=== PATIENT | male | born 1980 | race Hispanic/Latino ===

== ENCOUNTER 2018-01-20 21:37 | Emergency (ER) | payer SELFPAY ==
[2018-01-20 22:27] LABS: BASOPHILS % (AUTO) 0.6 % (0.0-5.0); EOSINOPHILS % (AUTO) 1.1 % (0.0-8.0); LYMPHOCYTES % (AUTO) 15.6 % (21.0-51.0); MEAN CORPUSCULAR HEMOGLOBIN 29.8 pg (27.0-33.0); MEAN CORPUSCULAR HGB CONC 35.4 g/dL (32.0-36.0); MEAN CORPUSCULAR VOLUME 84.2 fL (79-99); MONOCYTES % (AUTO) 7.9 % (3.0-13.0); NEUTROPHILS % (AUTO) 74.8 % (40.0-77.0); NUCLEATED RED BLOOD CELLS 0.1 % (0.0-0.19); PLATELET COUNT (AUTO) 202 K/uL (130-400); RED BLOOD CELL COUNT(AUTO) 4.64 MIL/uL (4.50-6.20); RED CELL DISTRIBUTION WIDTH 13.9 % (11.0-15.5); WHITE BLOOD COUNT (AUTO) 9.9 K/uL (4.8-10.8)
[2018-01-20 22:41] LABS: POTASSIUM 3.2 mmol/L (3.5-5.1)
[2018-01-20 22:44] LABS: INR 0.95 (0.85-1.15); PARTIAL THROMBOPLASTIN TIME 26.6 SEC (26.3-35.5)
[2018-01-20 22:46] LABS: ALBUMIN 3.7 g/dL (3.5-5.0); BILIRUBIN,TOTAL 0.3 mg/dL (0.2-1.0); TOTAL PROTEIN, SERUM 7.2 g/dL (6.0-8.3)
[2018-01-20] MEDS ORDERED: POTASSIUM BICARB/CIT AC 25 MEQ TABLET.EFF ONE (23:37)
[2018-01-20] MEDS ORDERED: CLINDAMYCIN 600 MG/D5% WATER 50 ML IV ONE (23:38)
== END 2018-01-21 00:12 | disposition home or self-care (01) ==
LOC: EDH 21:37
DX: L03.115 Cellulitis of right lower limb (principal)
CPT/HCPCS: 36415; 80053; 85025; 85610; 85730; 93971; 96365; 99285; J3490

== ENCOUNTER 2019-04-22 16:56 | Emergency (ER) | payer SELFPAY ==
[2019-04-22] MEDS ORDERED: LIDOCAINE HCL 1% 20 ML VIAL ONE (17:17)
[2019-04-22] MEDS ORDERED: LIDOCAINE/PRILOCAINE CREAM 5GM TUBE TP ONE (17:17)
[2019-04-22] MEDS ORDERED: TETANUS/DIPHTHERIA TOXOID [ADULT] 0.5 ML VIAL IM ONE (17:18)
== END 2019-04-22 19:43 | disposition home or self-care (01) ==
LOC: EDH 16:56
DX: S01.511A Laceration without foreign body of lip, initial encounter (principal); W11.XXXA Fall on and from ladder, initial encounter; Y93.89 Activity, other specified; Y92.098 Other place in other non-institutional residence as the place of occurrence of the external cause; Y99.8 Other external cause status; Z90.49 Acquired absence of other specified parts of digestive tract
CPT/HCPCS: 40650; 70450; 90471; 90714; 99284; J3490

== ENCOUNTER 2021-04-06 09:43 | Emergency (ER) | payer SELFPAY ==
[~2021-04-06] VITALS: Ht 170.2 cm; Wt 68.0 kg
[2021-04-06 09:45] VITALS: BP 132/83
[2021-04-06 10:21] VITALS: BP 126/81
[2021-04-06 10:27] LABS: BASOPHILS % (AUTO) 0.3 % (0.0-5.0); EOSINOPHILS % (AUTO) 0.1 % (0.0-8.0); HEMATOCRIT 43.9 % (42-54); MEAN CORPUSCULAR HEMOGLOBIN 27.5 pg (27.0-33.0); MEAN CORPUSCULAR VOLUME 83.1 fL (79-99); MONOCYTES % (AUTO) 7.7 % (3.0-13.0); NEUTROPHILS % (AUTO) 85.7 % (40.0-77.0); PLATELET COUNT (AUTO) 218 K/uL (130-400); RED BLOOD CELL COUNT(AUTO) 5.28 MIL/uL (4.50-6.20); RED CELL DISTRIBUTION WIDTH 13.6 % (11.0-15.5); WHITE BLOOD COUNT (AUTO) 11.2 K/uL (4.8-10.8)
[2021-04-06 10:28] LABS: APPEARANCE,URINE Clear (CLEAR); BILIRUBIN,URINE Negative (NEGATIVE); COLOR,URINE Yellow (YELLOW); GLUCOSE, URINE (UA) Negative (NEGATIVE); KETONES,URINE 15 mg/dL (NEGATIVE); LEUKOCYTE ESTERASE ,URINE Negative (NEGATIVE); NITRATE,URINE Negative (NEGATIVE); OCCULT BLOOD,URINE Negative (NEGATIVE); PH,URINE 5.5 (5.0-8.0); PROTEIN,URINE Trace mg/dL (NEGATIVE)
[2021-04-06 10:46] LABS: CREATININE 1.1 mg/dL (0.5-1.5); POTASSIUM 3.6 mmol/L (3.5-5.1)
[2021-04-06 10:50] LABS: ALBUMIN 3.8 g/dL (3.5-5.0); BILIRUBIN,TOTAL 0.7 mg/dL (0.2-1.0); TOTAL PROTEIN, SERUM 7.6 g/dL (6.0-8.3)
[2021-04-06 10:52] LABS: BACTERIA,URINE Moderate /HPF (None Seen); MUCUS,URINE Few LPF (None Seen); SQUAMOUS EPITHELIAL CELL,UR None Seen /HPF (0-2)
[2021-04-06] MEDS ORDERED: SODIUM CHLORIDE 0.9% 1000ML 1,000 ML IV SCH (11:30)
[2021-04-06] MEDS ORDERED: FAMOTIDINE/PF 20 MG/2 ML VIAL IV ONE (12:30)
[2021-04-06] MEDS ORDERED: PROCHLORPERAZINE EDISYLATE 10 MG/2 ML VIAL IV SCH (12:30)
[2021-04-06] MEDS ORDERED: DiphenhydrAMINE HCL 50 MG/ML VIAL IV ONE (12:30)
[2021-04-06] MEDS ORDERED: FAMO-136 PO (14:42)
[2021-04-06 15:11] VITALS: BP 116/78
== END 2021-04-06 15:13 | disposition home or self-care (01) ==
LOC: EDH 09:43
DX: K52.9 Noninfective gastroenteritis and colitis, unspecified (principal)
CPT/HCPCS: 36415; 80053; 81001; 85025; 87088; 96361; 96374; 96375; 99284; J0780; J1200; J3490

== ENCOUNTER 2021-04-15 22:52 | Emergency (ER) | payer SELFPAY ==
[~2021-04-15] VITALS: Ht 170.2 cm; Wt 68.0 kg
[~2021-04-15 22:52] MED LIST: FAMO-136 PO
[2021-04-15] MEDS ORDERED: NACL 0.9% 1000ML 1,000 ML IV ONE ×2 (22:53→23:45)
[2021-04-15 22:57] VITALS: BP 118/68
[2021-04-15] MEDS ORDERED: MORPHINE 2 MG SYG IVP ONE (23:45)
[2021-04-15] MEDS ORDERED: ONDANSETRON 4MG INJ IVP ONE (23:45)
[2021-04-15 23:59] LABS: BASOPHILS % (AUTO) 0.4 % (0.0-5.0); EOSINOPHILS % (AUTO) 0.9 % (0.0-8.0); HEMATOCRIT 44.7 % (42-54); LYMPHOCYTES % (AUTO) 9.8 % (21.0-51.0); MEAN CORPUSCULAR HEMOGLOBIN 28.3 pg (27.0-33.0); MEAN CORPUSCULAR HGB CONC 33.8 g/dL (32.0-36.0); MEAN CORPUSCULAR VOLUME 83.7 fL (79-99); MONOCYTES % (AUTO) 8.1 % (3.0-13.0); NEUTROPHILS % (AUTO) 80.4 % (40.0-77.0); PLATELET COUNT (AUTO) 299 K/uL (130-400); RED BLOOD CELL COUNT(AUTO) 5.34 MIL/uL (4.50-6.20); RED CELL DISTRIBUTION WIDTH 13.9 % (11.0-15.5); WHITE BLOOD COUNT (AUTO) 10.1 K/uL (4.8-10.8)
[2021-04-16 00:01] LABS: APPEARANCE,URINE Clear (CLEAR); BILIRUBIN,URINE Negative (NEGATIVE); COLOR,URINE Yellow (YELLOW); GLUCOSE, URINE (UA) Negative (NEGATIVE); KETONES,URINE Negative (NEGATIVE); LEUKOCYTE ESTERASE ,URINE Negative (NEGATIVE); NITRATE,URINE Negative (NEGATIVE); OCCULT BLOOD,URINE Large (NEGATIVE); PH,URINE 5.5 (5.0-8.0); PROTEIN,URINE Negative (NEGATIVE)
[2021-04-16 00:05] LABS: CARBON DIOXIDE 23 mmol/L (21-32); CHLORIDE 106 mmol/L (101-111); CREATININE 1.1 mg/dL (0.5-1.5); GLOMERULAR FILTR. RATE CALC 79 mL/min (>60); GLUCOSE,RANDOM 102 mg/dL (70-105); POTASSIUM 4.2 mmol/L (3.5-5.1); SODIUM SERUM 141 mmol/L (136-145); UREA NITROGEN, BLOOD 21 mg/dL (7-18)
[2021-04-16 00:09] LABS: RBC,URINE 26-50 /HPF (0-1); WBC,URINE 0-1 /HPF (0-1)
[2021-04-16 00:10] LABS: ALANINE AMINOTRANSFERASE 51 U/L (12-78); ALBUMIN 3.8 g/dL (3.5-5.0); ASPARTATE AMINOTRANSFERASE 32 U/L (10-37); BACTERIA,URINE Few /HPF (None Seen); BILIRUBIN,TOTAL 0.6 mg/dL (0.2-1.0); MUCUS,URINE Rare LPF (None Seen); TOTAL PROTEIN, SERUM 6.8 g/dL (6.0-8.3)
[2021-04-16 00:11] LABS: LIPASE < 50 U/L (114-286)
[2021-04-16] MEDS ORDERED: ONDANSETRON 4MG INJ ONE (00:14)
[2021-04-16] MEDS ORDERED: MORPHINE 2 MG SYG ONE (00:14)
[2021-04-16] MEDS ORDERED: IOHEXOL 350 MG/ML 100ML INFUS..BTL IV ONE (00:44)
[2021-04-16] MEDS ORDERED: LEVOFLOXACIN 500 MG/D5W 100 ML 100 ML IV ONE (00:45)
[2021-04-16 02:04] VITALS: BP 120/77
[2021-04-16] MEDS ORDERED: IBUP-2070 PO (02:59)
[2021-04-16] MEDS ORDERED: CIPR-278 PO (02:59)
[2021-04-16] MEDS ORDERED: PROM25TA7 PO (02:59)
== END 2021-04-16 03:38 | disposition home or self-care (01) ==
LOC: EDH 22:52
DX: A09 Infectious gastroenteritis and colitis, unspecified (principal); E86.0 Dehydration; Z79.899 Other long term (current) drug therapy
CPT/HCPCS: 36415; 74177; 80053; 81001; 82270; 83630; 83690; 85025; 87046; 87177; 87324; 96361; 96365; 96375; 99285; J1956; J2405; J7030; Q9967

== ENCOUNTER 2021-06-08 13:30 | Emergency (ER) | payer SELFPAY ==
[~2021-06-08] VITALS: Ht 172.7 cm; Wt 83.9 kg
[~2021-06-08 13:30] MED LIST changes: +CIPR-278 PO; +IBUP-2070 PO; +PROM25TA7 PO
[2021-06-08 13:31] VITALS: BP 128/83
== END 2021-06-08 15:28 | disposition left against medical advice (07) ==
LOC: EDH 13:30
DX: R50.9 Fever, unspecified (principal); Z53.21 Procedure and treatment not carried out due to patient leaving prior to being seen by health care provider

== ENCOUNTER 2025-02-17 18:37 | Emergency (ER) | payer SELFPAY ==
[~2025-02-17] VITALS: Ht 152.4 cm; Wt 68.0 kg
--- NOTE | 2025-02-17 18:46 | ERN ---
ED Note History of Present Illness Stated Complaint: COUGH, CONGESTION, SORE THROAT Chief Complaint: Cough Time Seen by MD: 18:39 Time Seen by Midlevel: 18:41 Dictation: 44-year-old male with no past medical history coming in with complaints of cough, congestion, sore throat and chest pain for the last three days. Patient states his spouse was diagnosed with influenza B on Saturday. Allergies: Coded Allergies: No Known Drug Allergies (Unverified Allergy, Unknown, 04/23/19) Home Meds Active Scripts Oseltamivir Phosphate (Tamiflu) 75 Mg Cap, 75 MG PO BID for 5 Days, #10 CAP Prov:XANDER STAPLES PLASTER LATHER 02/17/25 Ibuprofen (Ibuprofen) 600 Mg Tablet, 600 MG PO Q6H PRN for PAIN for 10 Days, #40 TAB Prov:LEANDRO BLAKE MD 04/16/21 Promethazine HCl (Promethazine HCl) 25 Mg Tablet, 25 MG PO QID PRN for nausea for 5 Days, #20 TAB Prov:LEANDRO BLAKE MD 04/16/21 Ciprofloxacin HCl (Cipro) 500 Mg Tablet, 500 MG PO BID for colitis for 10 Days, #20 TAB Prov:LEANDRO BLAKE MD 04/16/21 Famotidine (Pepcid) 20 Mg Tablet, 20 MG PO BID, #60 TAB Prov:PRAVIN RICHARDS MD 04/06/21 Past Medical History Past Medical History: No Pertinent History Surgical History: Appendectomy Social History: ETOH Review of System Dictation Constitutional: Negative for fever,chills, and weight loss Eyes: Negative for injury, pain,redness, and discharge ENT: Negative for injury,pain or swelling Cardiovascular: Positive for chest pain, no palpitations, and no edema Respiratory: Positive for cough, no shortness a breath or wheezing Abdomen/GI: Negative for abdominal pain, nausea, vomiting, diarrhea, and constipation Back: Negative for injury and pain : Negative for injury, bleeding and discharge MS/Extremity: Negative for injury and deformity Skin: Negative for rash, and discoloration Neuro: Negative for headache, weakness, numbness, tingling, and seizure Psych: Negative for suicide ideation, homicidal ideation, and hallucinations Initial Vital Sign VS Vital Signs Date Time Temp Pulse Resp B/P (MAP) Pulse Ox O2 Delivery O2 Flow Rate FiO2 02/17/25 18:38 99.7 84 16 121/87 98 Room Air 0 Physical Exam Dictation General: awake, alert, NAD Head/Face: Normocephalic, atraumatic Eyes: PERRL, EOMI, vision at baseline ENT: oral cavity clear, TMs clear, no signs of infection Neck: Trachea midline, supple, no nuchal rigidity Cardiovascular: RRR, normal S1/S2, No MRGs, no JVD Respiratory: CTAB, no respiratory distress, No rales or wheezes Abdomen: Soft, non-tender, non-distended, normal bowel sounds, no guarding or rebound. Skin: Warm, dry, normal turgor, no rash MS/Extremity: Pulses equal, no cyanosis, neurovascular intact, FROM Neuro: COAx4, GCS 15, strength 5/5, CN 2-12 intact, normal cerebellar exam, normal gait, Psych: Normal behavior, mood, and affect normal Results (Laboratory/Radiology) Laboratory/Radiology Laboratory Tests Test 02/17/25 18:43 02/17/25 19:36 Influenza Type A Antigen Negative For Type A Influenza Type B Antigen Positive For Type B SARS-CoV-2 Antigen (Rapid) PRESUMPTIVE NEGATIVE Group A Streptococcus Rapid negative (NEGATIVE) White Blood Count 4.6 K/uL (4.8-10.8) L Red Blood Count 5.31 MIL/uL (4.50-6.20) Hemoglobin 14.7 g/dL (14.0-18.0) Hematocrit 43.8 % (42-54) Mean Corpuscular Volume 82.5 fL (79-99) Mean Corpuscular Hemoglobin 27.7 pg (27.0-33.0) Mean Corpuscular Hemoglobin Concent 33.6 g/dL (32.0-36.0) Red Cell Distribution Width 13.8 % (11.0-15.5) Platelet Count 188 K/uL (130-400) Mean Platelet Volume 10.5 fL (7.5-10.5) Immature Granulocyte % (Auto) 0.0 % (0-1) Neutrophils (%) (Auto) 68.7 % (40.0-77.0) Lymphocytes (%) (Auto) 21.1 % (21.0-51.0) Monocytes (%) (Auto) 9.6 % (3.0-13.0) Eosinophils (%) (Auto) 0.2 % (0.0-8.0) Basophils (%) (Auto) 0.4 % (0.0-5.0) Neutrophils # (Auto) 3.2 K/uL (1.8-7.7) Lymphocytes # (Auto) 1.0 K/uL (1.0-4.8) Monocytes # (Auto) 0.4 K/uL (0.1-1.0) Eosinophils # (Auto) 0.01 K/uL (0.00-0.70) Basophils # (Auto) 0.02 K/uL (0.00-0.20) Absolute Immature Granulocyte (auto 0.00 K/uL (0-1) Nucleated Red Blood Cells 0.0 % (0.0-0.19) Sodium Level 135 mmol/L (136-145) L Potassium Level 3.9 mmol/L (3.5-5.1) Chloride Level 99 mmol/L (101-111) L Carbon Dioxide Level 29 mmol/L (21-32) Blood Urea Nitrogen 19 mg/dL (7-18) H Creatinine 1.0 mg/dL (0.5-1.3) Glomerular Filtration Rate Calc 96 mL/min (>90) Random Glucose 91 mg/dL (70-105) Total Calcium 9.1 mg/dL (8.5-10.1) Troponin I High Sensitivity 5 ng/L (4-75) Labs Reviewed?: Yes EKG Comment: EKGs done at 6:43 p.m.. Sinus rhythm at a rate of 87. No STEMI interpreted by ER MD ED Course ED Course Orders Procedure Category Date Status Time Cbc With Differential LAB 02/17/25 Complete 18:42 Basic Metabolic Panel LAB 02/17/25 Complete 18:42 Troponin I High LAB 02/17/25 Complete Sensitivity 18:42 12 Lead Ekg Tracing- EKG 02/17/25 Complete Technical 18:42 Covid19 (Sars Antigen LAB 02/17/25 Complete Rapid) 18:42 Influenza Type A & B, LAB 02/17/25 Complete Rapid 18:42 Rapid (Group A Strep) LAB 02/17/25 Complete 18:42 Chest 1vw RAD 02/17/25 Resulted 18:42 0.9%Nacl 1000ml (Ns PHA 02/17/25 Complete 1000ml) 19:05 Dexamethasone 4mg/Ml PHA 02/17/25 Complete 1ml Vial (Dexametha 19:30 Benzonatate 100 Mg PHA 02/17/25 Complete Capsule (Tessalon 100 19:30 Ketorolac PHA 02/17/25 Complete Tromethamine 15mg/Ml 19:30 Current Medications Medications (Trade) Dose Ordered Sig/[place] Route PRN Reason Start Time Stop Time Status Last Admin Dose Admin Benzonatate (Tessalon 100mg Caps) 200 mg ONCE ONCE PO 02/17/25 19:30 02/17/25 19:31 DC 02/17/25 20:08 Dexamethasone Sodium Phosphate (dexaMETHasone 4MG/ML 1ML VIAL) 6 mg ONCE ONCE IVP 02/17/25 19:30 02/17/25 19:31 DC 02/17/25 20:07 Ketorolac Tromethamine (toRADol) 15 mg ONCE ONCE IV 02/17/25 19:30 02/17/25 19:31 DC 02/17/25 20:08 Sodium Chloride 1,000 ml @ 1,000 mls/hr Q1H STAT IV 02/17/25 19:05 02/17/25 20:04 DC 02/17/25 20:08 Vital Signs Date Time Temp Pulse Resp B/P (MAP) Pulse Ox O2 Delivery O2 Flow Rate FiO2 02/17/25 18:38 99.7 84 16 121/87 98 Room Air 0 HEART Score Response (Comments) Value History: Low suspicion (0) 0 EKG: Normal 0 Age: < 45yrs (0) 0 Risk Factors: No known risk factors (0) 0 Initial Troponin: Normal limit (0) 0 Total 0 Medical Decision Making MDM MDM: 44-year-old male with no past medical history coming in with complaints of cough, congestion, sore throat and chest pain for the last three days. Patient states his spouse was diagnosed with influenza B on Saturday. Blood work unremarkable. Tested positive for influenza B. Chest x-ray within normal range. EKGs did not show any ST elevations. Heart score is 0. Patient will be discharged with Tamiflu. Educated to follow up with PCP in 1-2 days and return to the hospital symptoms worsen. Patient verbalized understanding, answered all questions. Differential diagnosis: Influenza, COVID, strep, viral syndrome, ACS Rationale: Tests considered and ordered secondary to shared decision making include: Previous outside records reviewed: Old ER visits. Risk of complication and/or morbidity or mortality of patient management: None Medications-Per medication reconciliation Need for hospitalization: Patient does not meet criteria for hospitalization. Need for emergency major/minor surgery: No There are no social concerns with this patient. Prescription drug management Prescriptions will include symptomatic care Patient's prior external medical records from other ER visits were reviewed by me as indicated. Prior testing and results from previous visits were reviewed. Prior tests were taken into account with medical decision making and resource utilization, independent historian/historians were used to obtain complete medical history. I independently interpreted the test that were performed, results were reviewed by me and considered findings on radiology if ordered. Medical management and examination interpretation discussions were had by me with other qualified healthcare professionals as indicated for the patient's care. DX & DISP Disposition: Discharge Departure Impression: Primary Impression: Influenza B Condition: Stable Scripts Oseltamivir Phosphate (Tamiflu) 75 Mg Cap 75 MG PO BID for 5 Days, #10 CAP Prov: XANDER STAPLES PLASTER LATHER 02/17/25 Additional Instructions: Take Tamiflu as prescribed. You can add Tylenol or Motrin for pain and fever control. Follow up with PCP in 1-2 days. Referrals: SELF,REFERRAL (PCP) Time of Disposition: 20:21 I have reviewed the case, and I agree with, Diagnosis and Plan I PERFORMED A SUBSTANTIVE PORTION OF THE VISIT. I HAVE REVIEWED AND PERSONALLY MADE AND APPROVE THE MANAGEMENT PLAN THAT IS DOCUMENTED IN THE NOTE BY MYSELF OR THE AP P. I ACKNOWLEDGE FULL RESPONSIBILITY FOR THE PATIENT'S MANAGEMENT PLAN. XANDER STAPLES NP Feb 17, 2025 18:46
--- NOTE | 2025-02-17 18:46 | EKG ---
[facility] Test Date: 2025-02-17 Test Time: 18:43:45 Pat Name: ABEL UP Department: ED Room: Gender: M User Experience Architect: [id number] : 1980 Requested By: XANDER STAPLES Order Number: [id number] Reading MD: Desmond Malik Measurements Intervals [place] Rate: 87 P: 45 RI: 133 QRS: 50 QRSD: 91 T: 24 QT: 346 QTc: 417 Interpretive Statements Sinus rhythm No previous ECG available for comparison Electronically Signed On 02-18-2025 20:48:21 CDT by Desmond Malik Please click the below link to view image of tracing.
[2025-02-17 19:07] LABS: RAPID GROUP A STREP negative (NEGATIVE)
[2025-02-17 19:18] LABS: COVID19 (SARS ANTIGEN RAPID) PRESUMPTIVE NEGATIVE (NEGATIVE); INFLUENZA TYPE A Negative For Type A (NEGATIVE)
[2025-02-17 19:55] LABS: BASOPHILS # (AUTO) 0.02 K/uL (0.00-0.20); BASOPHILS % (AUTO) 0.4 % (0.0-5.0); EOSINOPHILS # (AUTO) 0.01 K/uL (0.00-0.70); EOSINOPHILS % (AUTO) 0.2 % (0.0-8.0); HEMATOCRIT 43.8 % (42-54); LYMPHOCYTES % (AUTO) 21.1 % (21.0-51.0); MEAN CORPUSCULAR HEMOGLOBIN 27.7 pg (27.0-33.0); MEAN CORPUSCULAR HGB CONC 33.6 g/dL (32.0-36.0); MEAN CORPUSCULAR VOLUME 82.5 fL (79-99); MONOCYTES # (AUTO) 0.4 K/uL (0.1-1.0); MONOCYTES % (AUTO) 9.6 % (3.0-13.0); NEUTROPHILS # (AUTO) 3.2 K/uL (1.8-7.7); NEUTROPHILS % (AUTO) 68.7 % (40.0-77.0); PLATELET COUNT (AUTO) 188 K/uL (130-400); RED BLOOD CELL COUNT(AUTO) 5.31 MIL/uL (4.50-6.20); RED CELL DISTRIBUTION WIDTH 13.8 % (11.0-15.5); WHITE BLOOD COUNT (AUTO) 4.6 K/uL (4.8-10.8)
[2025-02-17 20:04] LABS: POTASSIUM 3.9 mmol/L (3.5-5.1)
[2025-02-17] MEDS: dexaMETHasone SOD PHOSPHATE 4 MG/ML 1ML VIAL IVP ONE (20:07)
[2025-02-17] MEDS: ketOROlac 15MG/ML VIAL (15MG/ML) IV ONE (20:08)
[2025-02-17] MEDS: BENZONATATE 100 MG CAPSULE PO ONE (20:08)
[2025-02-17] MEDS: 0.9%NACL 1000ML 1,000 ML IV STA (20:08)
--- NOTE | 2025-02-17 20:10 | HMCIMG ---
CHEST 1VW HISTORY: Cough COMPARISON: None FINDINGS: A frontal projection of the chest was obtained. No acute pulmonary infiltrates is seen. Prominent interstitial markings are seen. The heart is borderline in size. Mild degenerative changes are seen. No evidence of aortic calcification is seen. IMPRESSION: 1. No acute pulmonary infiltrate is seen.
[2025-02-17 20:15] LABS: INFLUENZA TYPE B Positive For Type B (NEGATIVE)
--- NOTE | 2025-02-17 20:15 | NUR ---
REPORTED FLU B POSITIVE TO XANDER NO CONCERNS
[2025-02-17] MEDS ORDERED: OSEL75 PO (20:22)
[2025-02-17 21:22] VITALS: BP 145/85; PULSE 87; RESP 17; TEMP 97.9; O2SAT 99
== END 2025-02-17 21:25 | disposition home or self-care (01) ==
LOC: EDH 18:37
DX: J10.1 Influenza due to other identified influenza virus with other respiratory manifestations (principal); Z20.822 Contact with and (suspected) exposure to COVID-19; Z79.899 Other long term (current) drug therapy; Z90.49 Acquired absence of other specified parts of digestive tract
CPT/HCPCS: 99285; 96374; 71045; 96361; 96375; 87426; 84484; 80048; 85025; 87880; 87804 ×2; 36415; 93005; J1100; J1885; J7030